=== PATIENT | female | born 1950 | race Caucasian/White ===

== ENCOUNTER → 2017-11-09 | Outpatient (CLI) | payer OTHER, MEDICARE ==
[~2017-11-09] MED LIST: LISI-646 PO
[2017-11-09 10:08] LABS: Urine Bacteria FEW /hpf (None Seen); Urine Blood Negative /uL (Negative); Urine Mucus FEW (None Seen); Urine Specific Gravity 1.011 (1.001-1.035); Urine WBC <1 /hpf (0 - 5)
[2017-11-09 10:25] LABS: Albumin 3.5 g/dL (3.4-5.0); BUN/Creatinine Ratio 19.3; Bilirubin, Total 0.7 mg/dL (0.2-1.0); Calcium 8.6 mg/dL (8.5-10.1); Potassium 4.2 mmol/L (3.5-5.1); Total Protein 6.9 g/dL (6.4-8.2)
[2017-11-09 10:37] LABS: Folate (Folic Acid) 13.2 ng/mL (5.38-24)
[2017-11-09 11:04] LABS: Basophils # (auto) 0 uL; Basophils % (auto) 1.1 % (0.0-2.0); Eosinophils # (auto) 0.2 uL; Eosinophils % (auto) 4.4 % (0.0-7.0); Hematocrit 42.3 % (36.0-46.0); Lymphocytes # (auto) 1.2 uL; Lymphocytes % (auto) 27.7 % (10.0-50.0); Mean Corpuscular Hemoglobin 29.9 pg (28.0-32.0); Mean Corpuscular Volume 90.6 fL (80.0-100.0); Monocytes # (auto) 0.4 uL; Monocytes % (auto) 8.2 % (0.0-12.0); Neutrophils # (auto) 2.6 uL; Neutrophils % (auto) 58.6 % (37.0-80.0); Platelet Count (auto) 193 10^3/uL (140-450); Red Blood Cells 4.67 10^6/uL (4.0-5.20); Red Cell Distribution Width 13.1 % (11.8-14.3); White Blood Cell 4.4 10^3/uL (4.4-10.8)
== END | disposition home or self-care (01) ==
LOC: LAB 09:15
PROVIDERS: ATTEND Nurse Practitioner
DX: E78.5 Hyperlipidemia, unspecified (principal); J45.909 Unspecified asthma, uncomplicated
CPT/HCPCS: 36415; 80053; 80061; 81001; 82270; 82306; 82607; 82746; 83036; 84443; 85025; 85652; 86431

== ENCOUNTER 2017-11-10 18:33 | Inpatient (IN) | payer MEDICARE, OTHER ==
[~2017-11-10] VITALS: Ht 167.6 cm; Wt 106.4 kg
[2017-11-11 03:31] LABS: Basophils # (auto) 0 uL; Basophils % (auto) 0.9 % (0.0-2.0); Eosinophils # (auto) 0.2 uL; Eosinophils % (auto) 3.3 % (0.0-7.0); Hematocrit 43.8 % (36.0-46.0); Hemoglobin 14.5 g/dL (12.2-16.2); Lymphocytes # (auto) 1.7 uL; Lymphocytes % (auto) 29.5 % (10.0-50.0); Mean Corpuscular Volume 90.8 fL (80.0-100.0); Monocytes # (auto) 0.6 uL; Monocytes % (auto) 10.2 % (0.0-12.0); Neutrophils # (auto) 3.2 uL; Neutrophils % (auto) 56.1 % (37.0-80.0); Platelet Count (auto) 202 10^3/uL (140-450); Red Blood Cells 4.82 10^6/uL (4.0-5.20); White Blood Cell 5.6 10^3/uL (4.4-10.8)
[2017-11-11 03:47] LABS: Partial Thromboplastin Time 29.4 sec (23.78-33.04); Prothrombin Time 10.7 sec (9.27-12.13)
[2017-11-11 03:51] LABS: BUN/Creatinine Ratio 22.2; Calcium 8.4 mg/dL (8.5-10.1); Potassium 3.7 mmol/L (3.5-5.1)
[2017-11-11] MEDS ORDERED: FUROSEMIDE 20 MG/2 ML VIAL IV ONE (04:30)
[2017-11-11] MEDS ORDERED: ACETAMINOPHEN 500 MG TAB PO PRN (06:00)
[2017-11-11] MEDS ORDERED: ONDANSETRON HCL 4 MG/2 ML VIAL IV PRN (06:00)
[2017-11-11] MEDS ORDERED: TEMAZEPAM 15 MG CAP PO PRN (06:00)
[2017-11-11] MEDS ORDERED: NITROGLYCERIN 0.4 MG SL TAB SL PRN (06:00)
[2017-11-11] MEDS ORDERED: MORPHINE SULF INJ 2 MG/ML SYRINGE 1ML IV PRN (06:00)
[2017-11-11] MEDS ORDERED: HYDROcodone-ACET 5/325MG TAB PO PRN (06:00)
[2017-11-11 06:48] LABS: Basophils # (auto) 0.1 uL; Basophils % (auto) 1.1 % (0.0-2.0); Eosinophils # (auto) 0.2 uL; Eosinophils % (auto) 4.1 % (0.0-7.0); Hemoglobin 14.6 g/dL (12.2-16.2); Lymphocytes # (auto) 1.5 uL; Lymphocytes % (auto) 27.4 % (10.0-50.0); Mean Corpuscular Hemoglobin 30.8 pg (28.0-32.0); Mean Corpuscular Hgb Conc. 33.9 g/dL (32.0-36.0); Mean Corpuscular Volume 90.6 fL (80.0-100.0); Monocytes # (auto) 0.5 uL; Monocytes % (auto) 9.8 % (0.0-12.0); Neutrophils # (auto) 3.1 uL; Neutrophils % (auto) 57.6 % (37.0-80.0); Nucleated Red Blood Cells % 0.1 %; Platelet Count (auto) 199 10^3/uL (140-450); Red Blood Cells 4.75 10^6/uL (4.0-5.20); White Blood Cell 5.5 10^3/uL (4.4-10.8)
[2017-11-11 07:03] LABS: BUN/Creatinine Ratio 19.8; Calcium 8.4 mg/dL (8.5-10.1); Potassium 3.4 mmol/L (3.5-5.1)
[2017-11-11] MEDS ORDERED: LISI-646 PO (08:24)
[2017-11-11 08:28] VITALS: BP 178/98
[2017-11-11] MEDS ORDERED: hydrALAZINE HCL 20 MG/ML VL IV PRN (08:30)
[2017-11-11] MEDS ORDERED: LISINOPRIL 20 MG TAB PO SCH (10:00)
[2017-11-11] MEDS ORDERED: METOPROLOL TARTRATE 25 MG TAB PO ONE (10:45)
[2017-11-11] MEDS ORDERED: METOPROLOL TARTRATE 50 MG TAB PO ONE (10:45)
[2017-11-11] MEDS ORDERED: ASPirin 81 mg TAB PO ONE (10:45)
[2017-11-11 10:58] LABS: Urine Bacteria MOD /hpf (None Seen); Urine Blood Negative /uL (Negative); Urine Specific Gravity 1.006 (1.001-1.035); Urine WBC 21 /hpf (0 - 5)
[2017-11-11 11:24] LABS: Cholesterol 195 mg/dL (< 200); HDL Cholesterol 39 mg/dL (40-59); LDL Cholesterol 146 mg/dL (< 100); Triglycerides 101 mg/dL (< 150)
[2017-11-11] MEDS ORDERED: LEVOFLOXACIN 500 MG TAB PO ONE (11:45)
[2017-11-11] MEDS ORDERED: POTASSIUM CHL 20 Meq TABLET PO ONE (11:45)
[2017-11-11 13:00] VITALS: BP 148/68
[2017-11-11] MEDS: HCTZ 25 MG TAB PO SCH (14:19)
[2017-11-11 17:27] VITALS: BP 131/77
[2017-11-11] MEDS: LISINOPRIL 20 MG TAB PO SCH (21:48)
[2017-11-11 22:00] VITALS: BP 127/86
[2017-11-11] MEDS ORDERED: ATORVASTATIN 20 MG TAB PO SCH (22:00)
[2017-11-11] MEDS ORDERED: METOPROLOL TARTRATE 25 MG TAB PO SCH (22:00)
[2017-11-12 05:00] VITALS: BP 123/71
[2017-11-12 09:14] VITALS: BP 135/79
[2017-11-12] MEDS: ASPirin 81 mg TAB PO SCH (09:55)
[2017-11-12] MEDS: LEVOFLOXACIN 500 MG TAB PO SCH (09:55)
[2017-11-12] MEDS: HCTZ 25 MG TAB PO SCH (09:56)
[2017-11-12] MEDS: LISINOPRIL 20 MG TAB PO SCH ×2 (09:56→21:36)
[2017-11-12 13:00] VITALS: BP 134/88
[2017-11-12 17:02] VITALS: BP 130/85
[2017-11-12] MEDS: ATORVASTATIN 20 MG TAB PO SCH (21:35)
[2017-11-12 22:00] VITALS: BP 133/80
[2017-11-13 04:27] VITALS: BP 128/81
[2017-11-13] MEDS ORDERED: ADENOSINE 88 MG in GIVE UN-DILUTED 0 ML IV ONE (08:30)
[2017-11-13 08:40] VITALS: BP 127/74
[2017-11-13 09:00] VITALS: BP 117/80
[2017-11-13] MEDS: ASPirin 81 mg TAB PO SCH (10:40)
[2017-11-13] MEDS: LEVOFLOXACIN 500 MG TAB PO SCH (10:40)
[2017-11-13] MEDS: LISINOPRIL 20 MG TAB PO SCH ×2 (10:41→20:57)
[2017-11-13] MEDS: HCTZ 25 MG TAB PO SCH (10:41)
[2017-11-13 13:00] VITALS: BP 129/78
[2017-11-13 17:00] VITALS: BP 123/76
[2017-11-13] MEDS: ATORVASTATIN 20 MG TAB PO SCH (20:57)
[2017-11-13 21:01] VITALS: BP 116/68
[2017-11-14 05:51] VITALS: BP 93/58
[2017-11-14] MEDS ORDERED: LIDOCAINE 2%HCL (LOCAL ANESTH.) INJ 10ml MDV ONE (07:14)
[2017-11-14] MEDS ORDERED: HEPARIN IN NS 1000Units/500mL 0 ML ONE (07:14)
[2017-11-14] MEDS ORDERED: IODIXANOL 320MG/ML 100ML BTL IV ONE (07:14)
[2017-11-14] MEDS ORDERED: ANGIOMAX 250 MG VIAL IV ONE (07:56)
[2017-11-14] MEDS ORDERED: MIDAZOLAM HCL 1MG/1ML-2 ML VIAL ONE (07:57)
[2017-11-14] MEDS ORDERED: VERAPAMIL 2.5MG/ML INJ 2ML VIAL IV ONE (07:57)
[2017-11-14] MEDS ORDERED: SODIUM CHL 0.9% 50 ML ONE ×2 (07:57→07:58)
[2017-11-14] MEDS ORDERED: fentaNYL CITRATE 100 MCG/2 ML VL ONE (07:57)
[2017-11-14] MEDS ORDERED: PRASUGREL HCL 10 MG TAB ONE (08:52)
[2017-11-14] MEDS ORDERED: ASPirin 325 MG TAB ONE (09:03)
[2017-11-14] MEDS: ASPirin 81 mg TAB PO SCH (09:45)
[2017-11-14] MEDS: LISINOPRIL 20 MG TAB PO SCH ×2 (10:00→21:48)
[2017-11-14] MEDS: HCTZ 25 MG TAB PO SCH (10:00)
[2017-11-14] MEDS: LEVOFLOXACIN 500 MG TAB PO SCH (10:52)
[2017-11-14 17:00] VITALS: BP 112/71
[2017-11-14 18:00] VITALS: BP 136/61
[2017-11-14] MEDS ORDERED: ATORVASTATIN 20 MG TAB PO SCH (22:00)
[2017-11-15 04:28] VITALS: BP 104/61
[2017-11-15] MEDS ORDERED: CLOPIDOGREL 300 MG TAB PO ONE (06:00)
[2017-11-15 09:36] VITALS: BP 134/67
[2017-11-15] MEDS: ASPirin 81 mg TAB PO SCH (09:43)
[2017-11-15] MEDS: HCTZ 25 MG TAB PO SCH (09:48)
[2017-11-15] MEDS: LEVOFLOXACIN 500 MG TAB PO SCH (09:48)
[2017-11-15] MEDS: LISINOPRIL 20 MG TAB PO SCH (09:49)
[2017-11-15 12:39] VITALS: BP 102/65
[2017-11-16] MEDS ORDERED: CLOPIDOGREL BISULFATE 75 MG TAB PO SCH (10:00)
== END 2017-11-15 16:23 | disposition home or self-care (01) | DRG 247 ==
LOC: ER 18:36 → TELE 18:37 → TELE-WESTW 11-11 08:21
PROVIDERS: ADMIT Nurse Practitioner Family; ATTEND Family Medicine
PROC: 4A023N7 Measurement of Cardiac Sampling and Pressure, Left Heart, Percutaneous Approach (ICD-10-PCS; principal; 2017-11-14)
PROC: 027034Z Dilation of Coronary Artery, One Artery with Drug-eluting Intraluminal Device, Percutaneous Approach (ICD-10-PCS; 2017-11-14)
PROC: B2111ZZ Fluoroscopy of Multiple Coronary Arteries using Low Osmolar Contrast (ICD-10-PCS; 2017-11-14)
DX: I25.110 Atherosclerotic heart disease of native coronary artery with unstable angina pectoris (principal); I11.0 Hypertensive heart disease with heart failure; E87.6 Hypokalemia; E78.00 Pure hypercholesterolemia, unspecified; E83.51 Hypocalcemia; R00.1 Bradycardia, unspecified; E66.01 Morbid (severe) obesity due to excess calories; I50.9 Heart failure, unspecified; Z80.0 Family history of malignant neoplasm of digestive organs; Z82.0 Family history of epilepsy and other diseases of the nervous system; Z90.710 Acquired absence of both cervix and uterus; Z91.19 Patient's noncompliance with other medical treatment and regimen; Z68.37 Body mass index [BMI] 37.0-37.9, adult; Z88.1 Allergy status to other antibiotic agents; Z87.891 Personal history of nicotine dependence; Z98.51 Tubal ligation status
CPT/HCPCS: 36415; 71045; 78452; 80048; 80061; 81001; 83880; 84484; 85025; 85610; 85730; 86850; 86900; 86901; 87086; 92928; 93005; 93017; 93306; 93458; 96374; 96375; 99152; A6257; C1874; J0153; J2001; J2250; J2405; Q9967

== ENCOUNTER → 2018-01-09 | Outpatient (CLI) | payer MEDICARE ==
[2018-01-09 08:53] LABS: Basophils # (auto) 0 uL; Basophils % (auto) 1.2 % (0.0-2.0); Eosinophils # (auto) 0.2 uL; Eosinophils % (auto) 5.3 % (0.0-7.0); Hematocrit 41.1 % (36.0-46.0); Hemoglobin 13.8 g/dL (12.2-16.2); Lymphocytes # (auto) 0.7 uL; Lymphocytes % (auto) 18.8 % (10.0-50.0); Mean Corpuscular Hemoglobin 30.9 pg (28.0-32.0); Mean Corpuscular Hgb Conc. 33.6 g/dL (32.0-36.0); Mean Corpuscular Volume 91.8 fL (80.0-100.0); Monocytes # (auto) 0.4 uL; Monocytes % (auto) 10.6 % (0.0-12.0); Neutrophils # (auto) 2.3 uL; Neutrophils % (auto) 64.1 % (37.0-80.0); Nucleated Red Blood Cells % 0.1 %; Platelet Count (auto) 188 10^3/uL (140-450); Red Blood Cells 4.48 10^6/uL (4.0-5.20); Red Cell Distribution Width 13.3 % (11.8-14.3); White Blood Cell 3.5 10^3/uL (4.4-10.8)
[2018-01-09 09:03] LABS: Urine Bacteria FEW /hpf (None Seen); Urine Blood Negative /uL (Negative); Urine Specific Gravity 1.007 (1.001-1.035); Urine WBC 4 /hpf (0 - 5)
[2018-01-09 09:24] LABS: Albumin 3.6 g/dL (3.4-5.0); BUN/Creatinine Ratio 17.8; Calcium 8.6 mg/dL (8.5-10.1); Potassium 3.8 mmol/L (3.5-5.1)
[2018-01-09 09:27] LABS: Bilirubin, Total 0.6 mg/dL (0.2-1.0); Total Protein 7.2 g/dL (6.4-8.2)
== END | disposition home or self-care (01) ==
LOC: LAB 08:19
PROVIDERS: ATTEND Nurse Practitioner
DX: E78.5 Hyperlipidemia, unspecified (principal); I10 Essential (primary) hypertension; Z79.899 Other long term (current) drug therapy
CPT/HCPCS: 36415; 80053; 80061; 81001; 82306; 85025

== ENCOUNTER → 2018-07-03 | Outpatient (CLI) | payer MEDICARE ==
[~2018-07-03] MED LIST changes: +APIX2.5T PO; +ATOR40TA52 PO; +CAR3125T PO; +CLOP75TA41 PO; +DRON400T PO; +HYDR25TA4 PO; +NITR0.4S29 SL
[2018-07-03 07:59] LABS: Basophils # (auto) 0.1 uL; Basophils % (auto) 1.4 % (0.0-2.0); Eosinophils # (auto) 0.2 uL; Eosinophils % (auto) 4.7 % (0.0-7.0); Hematocrit 41.5 % (36.0-46.0); Hemoglobin 13.6 g/dL (12.2-16.2); Lymphocytes # (auto) 0.8 uL; Lymphocytes % (auto) 20.2 % (10.0-50.0); Mean Corpuscular Hemoglobin 30.6 pg (28.0-32.0); Mean Corpuscular Hgb Conc. 32.7 g/dL (32.0-36.0); Mean Corpuscular Volume 93.6 fL (80.0-100.0); Monocytes # (auto) 0.4 uL; Monocytes % (auto) 10.5 % (0.0-12.0); Neutrophils # (auto) 2.4 uL; Neutrophils % (auto) 63.2 % (37.0-80.0); Nucleated Red Blood Cells % 0.1 %; Platelet Count (auto) 188 10^3/uL (140-450); Red Blood Cells 4.43 10^6/uL (4.0-5.20); Red Cell Distribution Width 13.2 % (11.8-14.3); White Blood Cell 3.8 10^3/uL (4.4-10.8)
[2018-07-03 08:10] LABS: Urine Bacteria NONE SEEN /hpf (None Seen); Urine Blood Negative /uL (Negative); Urine Specific Gravity 1.012 (1.001-1.035); Urine WBC 2 /hpf (0 - 5)
[2018-07-03 09:08] LABS: Albumin 3.4 g/dL (3.4-5.0)
[2018-07-03 09:12] LABS: BUN/Creatinine Ratio 13.4; Bilirubin, Total 0.7 mg/dL (0.2-1.0); Total Protein 6.7 g/dL (6.4-8.2)
== END | disposition home or self-care (01) ==
LOC: LAB 07:40
PROVIDERS: ATTEND Nurse Practitioner
DX: E78.5 Hyperlipidemia, unspecified (principal); I10 Essential (primary) hypertension; Z79.899 Other long term (current) drug therapy
CPT/HCPCS: 36415; 80053; 80061; 81001; 82306; 84443; 85025

== ENCOUNTER 2018-09-27 20:49 | Inpatient (IN) | payer MEDICARE | END 2018-09-28 18:00 | disposition home or self-care (01) | LOC: ER 09-28 03:21 → TELE 09-28 02:41 → TELE-WESTW 09-28 03:30 | DX: R07.9 Chest pain, unspecified (principal); D68.9 Coagulation defect, unspecified ==